=== PATIENT | female | born 1970 | race Caucasian/White ===

== ENCOUNTER 2016-04-25 01:06 | Emergency (ER) | payer OTHER, MEDICAID ==
--- NOTE | 2016-04-25 01:53 | ERNOTE ---
Headache ER HPI - General Presenting Symptoms: headache Time Seen by Provider: 04/25/16 01:51 Source: patient Exam Limitations: no limitations - Immun/Allergies/Home Medications Immunizations: IMMUNIZATION HX Immunizations Up to Date Yes History of Influenza Vaccine No Hx Pneumococcal Vaccination No Allergies/Adverse Reactions: Allergies No Known Allergies Allergy (Verified 02/05/16 15:13) Home Medications: HOME MEDICATIONS Lisinopril [Zestril] 20 mg PO DAILY 12/23/12 [Last Taken Unknown] Omeprazole [Prilosec Generic] 20 mg PO DAILY 12/23/12 [Last Taken Unknown] Glimepiride [Amaryl] 4 mg PO DAILY 09/27/15 [Last Taken Unknown] ALPRAZolam [Xanax] 0.25 mg PO TID PRN 11/11/15 [Last Taken Unknown] Topiramate [Topamax] 25 mg PO BID 11/11/15 [Last Taken Unknown] Diclofenac Sodium [Voltaren] 75 mg PO BID 04/25/16 [Last Taken Unknown] Morphine Sulfate [Ms Contin] 30 mg PO 04/25/16 [Last Taken Unknown] Oxycodone HCl/Acetaminophen [Oxycodone-Acetaminophen 5-325] 1 each PO QID PRN [Last Taken Unknown] - Pain Pain Score: 7 - History of Present Illness Narrative: pt has had a headache for several days. she is having a hard time sleeping due to anxiety and restlessness over an upcoming hip surgery. She does have xanax PRN and she tried this but it did not help her sleep. Activity at onset: other Timing of Headache: cannot pinpoint onset Quality: Present: pressure Severity Maximum: Present: moderate Severity-Currently: Present: moderate Headache frequency: Present: occasional headaches, other - frontal this time not like her "migraines" Review of Systems - Review of Systems Constitutional: Present: See HPI. Absent: fever, chills EYE: Present: no symptoms reported ENT: Present: See HPI Respiratory: Present: no symptoms reported Cardiology: Present: no symptoms reported Gastrointestinal/Abdominal: Present: no symptoms reported Genitourinary: Present: no symptoms reported Musculoskeletal: Present: joint pain - left hip Skin: Present: no symptoms reported Neurological: Present: no symptoms reported Endocrine: Present: no symptoms reported Hematologic/Lymphatic: Present: no symptoms reported Psych: Present: no symptoms reported - Patient's Past Medical History Patient History - Medical: Diabetes Type 2, Migraines, Obesity Patient History - Cardiac/Respiratory: No pertinent hx Patient History - Cancer: No Hx of Cancer Patient History - Surgical Procedures: Other Patient History - Other: None LMP (Calendar): 09/05/15 - Social History Living Situations: alone Abuse History: No History of abuse Psych History: Hx of Anxiety Smoking Status: Never smoker Alcohol Use: rarely Drug Use: none - Immunizations Immunizations Up to Date: Yes Hx Pneumococcal Vaccination: No History of Influenza Vaccine: No Physical Exam - Physical Exam General Appearance: Present: wd/wn, alert, no apparent distress Eye Exam: Normal inspection: bilateral, PERRL: bilateral, EOMI: bilateral Ears, Nose, Throat: Present: nasal congestion Neck: Present: normal inspection, nontender Respiratory: Present: no respiratory distress, normal breath sounds Cardiovascular/Chest: Present: regular rate, rhythm, no murmur, normal peripheral pulses Back Exam: Present: normal inspection, normal range of motion, no vertebral tenderness Extremity Exam: Present: normal inspection, no edema Neurological Exam: Present: alert, oriented, normal mood/affect, no motor/ sensory deficits Skin Exam: Present: normal color, warm/dry ED Progress - Vital Signs Vital Signs: Vital Signs 04/25/16 01:20 Temperature 36.6 C Pulse Rate 85 Respiratory 16 Rate Blood Pressure 183/99 O2 Sat by Pulse 100 Oximetry - Progress/Reassessment Chief Complaint: Headache Departure Clinical Impression: Headache Qualifiers: Headache type: tension-type Headache chronicity pattern: acute headache Intractability: not intractable Qualified Code(s): G44.209 - Tension-type headache, unspecified, not intractable Insomnia Qualifiers: Insomnia type: paradoxical Qualified Code(s): 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 if you are not ready to sleep within an hour or an hour and a half you may take another one. Discuss with your pain management or your regular doctor continued treatment for your insomnia. Referrals: [Primary Care Provider] -
[2016-04-25] MEDS ORDERED: hydrOXYzine PAMOATE 25 MG CAPSULE PO ONE (02:09)
[2016-04-25] MEDS ORDERED: KETOROLAC TROMETHAMINE 60 MG/2 ML VIAL IM ONE ×2 (02:09→02:19)
[2016-04-25] MEDS ORDERED: hydrOXYzine PAMOATE 25 MG CAPSULE ONE (02:19)
--- OUTSIDE RECORDS SUMMARY | 2016-04-25 02:26 | XMS REPORT | Continuity of Care Document ---
:1970 Author Organization [facility] ([facility]) Address [address] [place] [address] Phone [phone] Care Team Providers Name Role Phone Francesco Ocampo Primary Care Provider [phone] Source Comments This disclosure is being made pursuant to the Care Everywhere program, applicable federal and state laws, and may not contain all informaitonavailable regarding this patient.[facility] ([facility]) Active Allergies and Adverse Reactions Allergen Noted Date Severity Reactions Comments Sumatriptan Upper Airway Edema,Angioedema Current Medications Prescription Sig. Disp. Refills Start Date End Date Status promethazine 25 mg Take 1 Tab by mouth 20 Tab 0 06/19/2011 Active tablet every 6 hours as needed. Indications: Nausea and migraine lisinopril 10 mg Take 1 Tab by mouth 30 Tab 5 11/21/2011 Active tablet daily. Indications: HYPERTENSION Omeprazole 20 mg Take 1 Tab by mouth 30 Tab 11 01/25/2012 Active TbEC daily. Indications: GASTROESOPHAGEAL REFLUX topiramate 25 mg Take 25 mg by mouth 2 01/25/2012 Active tablet times daily. Indications: MIGRAINE PREVENTION meloxicam (MOBIC) Take 1 Tab by mouth 60 Tab 1 05/08/2012 Active 15 mg tablet daily. Indications: ankle pain albuterol 90 Use 2 Puffs by 1 Inhaler 6 05/08/2012 Active mcg/Actuation inhalation every 6 inhaler hours as needed. Indications: BRONCHOSPASM PREVENTION rizatriptan 10 mg Take 1 tab at onset, 9 Tab 4 05/22/2012 Active tablet then 1 tab every 2 hours as needed. Max 3 tabs (30mg)/day Indications: MIGRAINE Active Problems Problem Noted Date OA (osteoarthritis) of knee 05/08/2012 Overview: bilat grade 3 S/P excision of acoustic neuroma 05/08/2012 Overview: In 2005. 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 Prediabetes 05/08/2012 Low back pain 01/25/2012 GERD (gastroesophageal reflux disease) 11/21/2011 RAD (reactive airway disease) 11/21/2011 Health education/counseling 11/21/2011 Morbid obesity 02/11/2009 Essential hypertension, benign 11/12/2008 Migraine 11/12/2008 Left hip pain 11/12/2008 Resolved Problems Problem Noted Date Resolved Date DM type 2 (diabetes mellitus, type 2) 05/08/2012 05/08/2012 Left ankle sprain 05/18/2011 05/08/2012 Other physical therapy 05/18/2011 05/08/2012 Type II or unspecified type diabetes mellitus without 11/12/2008 05/08/2012 mention of complication, uncontrolled Lt knee pain 11/12/2008 05/08/2012 Social History Tobacco Use Types Packs/Day Years Used Date Never Smoker Smokeless Tobacco: Never Used Tobacco Cessation:Counseling Given: Yes Comments: Alcohol Use Drinks/Week oz/Week Comments Yes rarely Last Filed Vital Signs Vital Sign Reading Time Taken Blood Pressure 130/98 05/22/2012 3:37 PM CDT Pulse 88 05/22/2012 3:37 PM CDT Temperature 37.7 C (99.9 F) 05/08/2012 11:43 AM CDT Respiratory Rate 18 12/05/2011 10:58 AM CDT Height 1.626 m (5' 4") 05/22/2012 3:37 PM CDT Weight 133.4 kg (294 lb 1.5 oz) 05/22/2012 3:37 PM CDT Body Mass Index 50.46 05/22/2012 3:37 PM CDT Oxygen Saturation 99% 12/05/2011 10:58 AM CDT Plan of Care Patient Goal Type Goal Diet Decrease soda or juice intake Reduce fast food intake Increase water intake Weight Weight below 91 kg (200 lb) Health Maintenance Due Date Last Done Comments Hepatitis B Vaccine (1 of 3 - 1970 Primary Series) MMR Vaccine 1988 Pneumococcal Vaccine (1 of 1989 - PPSV23) Cervical Cancer Screening 2000 Mammogram 2010 DIABETIC: Hemoglobin A1C 05/20/2012 11/21/2011, 11/21/2011, 11/12/2008 DIABETIC: Cholesterol 11/20/2012 11/21/2011, 11/21/2011, 11/12/2008 Diabetic: Hdl 11/20/2012 11/21/2011, 11/21/2011, 11/12/2008 Diabetic: Ldl 11/20/2012 11/21/2011, 11/21/2011, 11/12/2008 DIABETIC: Microalbumin 11/20/2012 11/21/2011, 11/21/2011, 11/12/2008 DIABETIC: Triglycerides 11/20/2012 11/21/2011, 11/21/2011, 11/12/2008 DIABETIC: Foot Exam 01/24/2013 01/25/2012, 01/25/2012, 01/25/2012 DIABETIC: Retinal Eye Exam 03/01/2013 03/01/2012, 03/01/2012 Influenza Vaccine: Seasonal 09/27/2015 (#1) Td Vaccine 11/20/2021 11/21/2011 (Declined), 01/12/2009 Tdap Vaccine Addressed 11/21/2011 Overridden with the (Declined) intention of not completing the topic Results from Last 3 Months Not on file
--- OUTSIDE RECORDS SUMMARY | 2016-04-25 02:26 | XMS REPORT | Summary of Care ---
:1970 Author Organization [facility] Address [address] [place] [address] Care Team Providers Name Role Phone RameshrachellePancho Chopra Primary Care Physician Encounter Date(s): 03/30/16 - 03/30/16 [facility] Jenelle Rai, [address] [place], [place] [address] Discharge Disposition: 01 Discharged to Home or Self Care Attending Physician: Terry Greenfield MD Referring Physician: Unknown Physician Vital Signs No data available for this section Problem List Condition Effective Dates Status Health Status Informant Diabetes mellitus type 2(Confirmed) Active Hypertension(Confirmed) Active Thyroid disease(Confirmed) Active Allergies, Adverse Reactions, Alerts No Known Medication Allergies Medications FLUoxetine 20 mg, Oral, Daily, 0 Refill(s), Start Date: 01/31/16 14:16:00 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 Start Date: 01/31/16 Status: Orderedglimepiride 4 mg oral tablet 1 tab(s), Oral, Daily, 0 Refill(s), Start Date: 04/29/15 9:47:00 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 Start Date: 04/29/15 Status: Orderedlisinopril 20 mg, Oral, Daily, 0 Refill(s), Start Date: 04/29/15 9:47:00 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 Start Date: 04/29/15 Status: OrderedMedrol Dosepak 4 mg oral tablet 1 packet(s), Oral, Per Package Label, as directed on package labeling, # 21 tab( s), 0 Refill(s), Start Date: 02/07/16 8:41:00 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, Pharmacy: [facility] [address] [facility] Special Instructions: as directed on package labeling Start Date: 02/07/16 Stop Date: 02/13/16 Status: Orderedmeloxicam 15 mg, Oral, Daily, 0 Refill(s), Start Date: 04/29/15 9:46:00 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 Start Date: 04/29/15 Status: OrderedNorco 5 mg-325 mg oral tablet 1 tab(s), Oral, q6hr interval, PRN for pain, 0 Refill(s), Start Date: 01/31/16 14:12:00 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 Start Date: 01/31/16 Status: Orderedomeprazole-sodium bicarbonate Oral, Daily, 0 Refill(s), Start Date: 04/29/15 9:48:00 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 Start Date: 04/29/15 Stop Date: 01/31/16 Status: DiscontinuedPercocet 5/325 tab(s), Oral, q6hr interval, 0 Refill(s), Start Date: 09/30/15 14:30:00 CDT Start Date: 09/30/15 Stop Date: 01/31/16 Status: Discontinuedtopiramate 25 mg oral tablet 1 tab(s), Oral, BID, 0 Refill(s), Start Date: 04/29/15 9:48:00 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 Start Date: 04/29/15 Stop Date: 01/31/16 Status: Discontinuedtopiramate 50 mg oral tablet 1 tab(s), Oral, BID, 0 Refill(s), Start Date: 01/31/16 14:12:00 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 Start Date: 01/31/16 Status: OrderedtraMADol 50 mg oral tablet 1 tab(s), Oral, TID, PRN as needed for pain, # 90 tab(s), 0 Refill(s), Start Date: 11/19/15 12:10:00 CDT, other reason (Rx) Start Date: 11/19/15 Stop Date: 02/07/16 Status: Discontinued Results No data available for this section Immunizations No data available for this section Procedures Procedure Date Related Diagnosis Body Site MRI with anesthesia1 2015 Acoustic neuroma2 2005 1MRI of [id number] side Social History No data available for this section Assessment and Plan No data available for this section
--- OUTSIDE RECORDS SUMMARY | 2016-04-25 02:27 | XMS REPORT | Summary of Care ---
:1970 Author Organization [facility] Address [address] [place] [address] Care Team Providers Name Role Phone RameshrachellePancho Chopra Primary Care Physician Encounter Date(s): 03/13/16 - 03/13/16 [facility] Jenelle Rai, [address] [place], [place] [address] Discharge Disposition: 01 Discharged to Home or Self Care Attending Physician: Terry Greenfield MD Vital Signs No data available for this section Problem List Condition Effective Dates Status Health Status Informant Diabetes mellitus type 2(Confirmed) Active Hypertension(Confirmed) Active Thyroid disease(Confirmed) Active Allergies, Adverse Reactions, Alerts No Known Medication Allergies Medications FLUoxetine 20 mg, Oral, Daily, 0 Refill(s), Start Date: 01/31/16 14:16:00 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 Start Date: 01/31/16 Status: Orderedglimepiride 4 mg oral tablet 1 tab(s), Oral, Daily, 0 Refill(s), Start Date: 04/29/15 9:47:00 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 Start Date: 04/29/15 Status: Orderedlisinopril 20 mg, Oral, Daily, 0 Refill(s), Start Date: 04/29/15 9:47:00 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 Start Date: 04/29/15 Status: OrderedMedrol Dosepak 4 mg oral tablet 1 packet(s), Oral, Per Package Label, as directed on package labeling, # 21 tab( s), 0 Refill(s), Start Date: 02/07/16 8:41:00 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, Pharmacy: [facility] Start Date: 02/07/16 Stop Date: 02/13/16 Status: Orderedmeloxicam 15 mg, Oral, Daily, 0 Refill(s), Start Date: 04/29/15 9:46:00 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 Start Date: 04/29/15 Status: OrderedNorco 5 mg-325 mg oral tablet 1 tab(s), Oral, q6hr interval, PRN for pain, 0 Refill(s), Start Date: 01/31/16 14:12:00 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 Start Date: 01/31/16 Status: Orderedomeprazole-sodium bicarbonate Oral, Daily, 0 Refill(s), Start Date: 04/29/15 9:48:00 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 Start Date: 04/29/15 Stop Date: 01/31/16 Status: DiscontinuedPercocet 5/325 tab(s), Oral, q6hr interval, 0 Refill(s), Start Date: 09/30/15 14:30:00 CDT Start Date: 09/30/15 Stop Date: 01/31/16 Status: Discontinuedtopiramate 25 mg oral tablet 1 tab(s), Oral, BID, 0 Refill(s), Start Date: 04/29/15 9:48:00 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 Start Date: 04/29/15 Stop Date: 01/31/16 Status: Discontinuedtopiramate 50 mg oral tablet 1 tab(s), Oral, BID, 0 Refill(s), Start Date: 01/31/16 14:12:00 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 Start Date: 01/31/16 Status: OrderedtraMADol 50 mg [...] anesthesia1 2015 Acoustic neuroma2 2005 1MRI of [id number] side Social History No data available for this section Assessment and Plan No data available for this section
[2016-04-25 02:52] VITALS: BP 145/89
== END 2016-04-25 02:30 | disposition home or self-care (01) ==
LOC: ER 01:06
DX: G44.209 Tension-type headache, unspecified, not intractable (principal); F51.03 Paradoxical insomnia; E11.9 Type 2 diabetes mellitus without complications

== ENCOUNTER 2016-12-25 16:08 | Emergency (ER) | payer OTHER ==
[2016-12-25 18:04] VITALS: BP 153/92
--- NOTE | 2016-12-25 18:21 | ERNOTE ---
Lower Extremity HPI - Narrative Date of Service: 12/25/16 - General Lower Extremities Pain: hip: left, knee: left Time Seen by Provider: 12/25/16 17:55 Source: patient Exam Limitations: no limitations - Immun/Allergies/Home Medications Immunizations: IMMUNIZATION HX Immunizations Up to Date Yes History of Influenza Vaccine No Hx Pneumococcal Vaccination No Allergies/Adverse Reactions: Allergies Allergy/AdvReac Type Severity Reaction Status Date / Time No Known Allergies Allergy Verified 12/25/16 16:16 Home Medications: HOME MEDICATIONS Lisinopril [Zestril] 20 mg PO DAILY 12/23/12 [Last Taken Unknown] Omeprazole [Prilosec Generic] 20 mg PO DAILY 12/23/12 [Last Taken Unknown] Glimepiride [Amaryl] 4 mg PO DAILY 09/27/15 [Last Taken Unknown] Topiramate [Topamax] 25 mg PO BID 11/11/15 [Last Taken Unknown] Diclofenac Sodium [Voltaren] 75 mg PO BID 04/25/16 [Last Taken Unknown] Cyclobenzaprine HCl [Flexeril] 10 mg PO TID PRN #30 tab 12/25/16 [Last Taken Unknown] - Pain Score Pain Score #1 Pain Score: 6 - L. knee Pain Score #2 Pain Score: 6 - L. posterior leg radiating up to L. hip - History of Present Illness Narrative: 46yo, reports pain to L. hip and L. knee since 12/23. She stepped down the stairs slipped and landed on her RLE, but that caused her L. hip and L. knee to turn inward. She has been having pain to L. knee and pain to L. posterior thigh shooting up her L. hip and into her lower back. She notes most of the pain is in her L. knee, but did have a L. hip replacement on 05/19/[address] Villalta in [place] at the [facility]. Date (Duration): 12/23/16 Location of Incident: other - friend house Method of Injury: Reports: fell, twisted Reason for Fall: Reports: slipped Loss of Consciousness: Reports: no loss of consciousness Modifying Factors - (Improves): Reports: rest Modifying Factors - (Worsens): Reports: movement Review of Systems - Review of Systems Constitutional: Present: no symptoms reported Musculoskeletal: Present: joint pain - L. hip, L. knee, joint swelling - mild L. knee Neurological: Absent: numbness, tingling - Patient's Past Medical History Patient History - Medical: Diabetes Type 2, Migraines, Obesity Patient History - Cardiac/Respiratory: No pertinent hx Patient History - Cancer: No Hx of Cancer Patient History - Surgical Procedures: Other Patient History - Other: None - Social History Living Situations: home Abuse History: No History of abuse Psych History: Hx of Anxiety Alcohol Use: none Drug Use: none - Immunizations Immunizations Up to Date: Yes Hx Pneumococcal Vaccination: No History of Influenza Vaccine: No Physical Exam - Physical Exam General Appearance: Present: wd/wn, alert, no apparent distress Respiratory: Present: normal breath sounds, chest nontender, lungs clear. Absent: crackles, rhonchi, wheezing Cardiovascular/Chest: Present: regular rate, rhythm, no murmur Extremity Exam: Present: normal inspection, normal range of motion - L. hip and L. knee, pain reported to L. knee with flexion and extension against resistance , no edema, bony tenderness - medial jointline tenderness to L. knee, other - tenderness along L. buttock and L. posterior thigh Neurological Exam: Present: alert, oriented Skin Exam: Present: normal color, warm/dry ED Progress - Date and Time Seen: Date and Time: 12/25/16 18:30 Reviewed xray results with pt. She feels her symptoms are more to her L. knee than hip. She does v/u to f/u with the orthopedic who performed her hip replacement. Although, she is wanting to establish with Dr. Lizarraga for f/u on her knee if needed. Advised to call office if symptoms do not improve with conservative measures. - Vital Signs Patient's Vital Signs:: I have reviewed the patient's vital signs. Vital Signs: Vital Signs 12/25/16 12/25/16 16:10 18:02 Temperature 36.9 C Pulse Rate 90 83 Respiratory 12 15 Rate Blood Pressure 148/95 153/92 O2 Sat by Pulse 98 98 Oximetry - X-Ray X-Ray #1 X-Ray: knee Interpretation: Reviewed by me X-ray Comments: [facility] PATIENT RADIOLOGY STUDY REPORT Patient Patient Name:RENETTA JOSHI Date: 1970 Sex: F Order Number: [id number] Unique Exam ID: [id number] Exam Requested: [id number] - Knee 3 Views LT * Date Scheduled: 12-25-2016 05:25 PM Study Priority: Requesting Service: Requesting Physician: Nadia Somers Reason for Exam: fell on stairs Radiological Report : [place] [address] NAME: RENETTA JOSHI : 1970 MR #: [id number] CC: Shea Hernandez DO LOC: ADM DATE: X-RAY REPORT [id number] RAD/Knee 3 Views LT * Exam Date: 12/25/2016 17:25 Ordering Physician: Nadia Somers History: fell on stairs Additional history provided by the technologist: Fell Sunday night. Twisted left hip/leg left knee. History of left hip replacement April 2016. Technique: Left knee series (3 views) Comparison:None. Findings: No evidence of acute fracture. Only visualized on the frontal and oblique projections is a irregular small 7 mm density superimposed over the lateral tibial plateau at the level of the proximal tibiofibular joint, that may represent artifact related to summation shadows versus loose body within the popliteal bursa. No dislocation. Alignment is anatomic. Mineralization is normal. There are moderate tricompartmental degenerative changes. No destructive osseous lesions. There is a small suprapatellar joint effusion. Soft tissues are unremarkable. Impression: No acute osseous findings. Additional findings and comments are as above. Electronically signed by Jeffrey Johnston D.O.. Jeffrey Johnston DO Dict: 12/25/[id number] Typed: 12/25/161848/ 12/25/16185412/25/161858 , Approved by: Jeffrey Johnston Approval Date: 12-25-2016 Approval Time: 06:49 PM THIS REPORT WAS RECEIVED FROM THE [facility] X-Ray #2 X-Ray: hip Interpretation: Reviewed by me X-ray Comments: [facility] PATIENT RADIOLOGY STUDY REPORT Patient Patient Name:RENETTA JOSHI Date: 1970 Sex: F Order Number: [id number] Unique Exam ID: [id number] Exam Requested: [id number] - Hip Pelvis 2-3 views LT * Date Scheduled: 12-25-2016 05:25 PM Study Priority: Requesting Service: Requesting Physician: Nadia Somers Reason for Exam: fell on stairs Radiological Report : [facility] [address] [place] [address] NAME: JESUS JOSHIID : 1970 MR #: [id number] CC: Shea Hernandez DO LOC: ER ADM DATE: X-RAY REPORT [id number] RAD/Hip Pelvis 2-3 views LT * Exam Date: 12/25/2016 17:25 Ordering Physician: Nadia Somers History: fell on stairs. Additional history provided by the technologist: Fell Sunday night. Twisted left hip/leg/knee. History of left hip replacement April 2016. Technique: AP radiograph of the pelvis and 2 views of the left hip (3 views) Comparison:None. Findings: There are changes from left total hip arthroplasty. The arthroplasty device is intact without surrounding lucency to suggest loosening or complication. No acute fracture. No dislocation. Alignment is anatomic. Mineralization is normal. There is bilateral sacroiliac joint arthrosis. Pubic symphysis and right hip degenerative changes noted. No destructive osseous lesions. Joint spaces are maintained. A IUD is superimposed over the pelvis. Impression: No acute fracture. Changes from left total hip arthroplasty without evidence of arthroplasty device complication. Electronically signed by Jeffrey Johnston D.O.. Jeffrey Johnston DO Dict: 12/25/[id number] Typed: 12/25/161854/ 12/25/16185512/25/161858 , Approved by: Jeffrey Johnston Approval Date: 12-25-2016 Approval Time: 06:55 PM THIS REPORT WAS RECEIVED FROM THE [facility] - Progress/Reassessment Chief Complaint: Lower Extremity Pain/ Injury Departure Clinical Impression: Muscle strain, Hip pain, left Sprain of knee Qualifiers: Encounter type: initial encounter Involved ligament of knee: unspecified ligament Laterality: left Qualified Code(s): S83.92XA - Sprain of unspecified site of left knee, initial encounter - Departure Disposition: Home self-care Condition: Good Instructions: Knee Sprain, [id number], Low Back Strain With Rehab-Sports[facility] Additional Instructions: May use heat to back as needed for pain Rest, ice, elevate, matthew wrap to knee May use crutches for the next 3 days until able to bear weight without pain Contact your orthopedic at [facility] for recheck on left hip If your knee pain does not improve with conservative treatments, then you may follow up with [facility] or with [facility] orthopedics, as additional testing may be needed Referrals: Shea Hernandez DO [Primary Care Provider] - Prescriptions: Cyclobenzaprine HCl [Flexeril] 10 mg PO TID PRN #30 tab PRN Reason: Pain
== END 2016-12-25 18:43 | disposition home or self-care (01) ==
LOC: ER 16:08
DX: S83.92XA Sprain of unspecified site of left knee, initial encounter (principal); M25.552 Pain in left hip; T14.8XXA Other injury of unspecified body region, initial encounter; W19.XXXA Unspecified fall, initial encounter; Y93.9 Activity, unspecified; Y92.9 Unspecified place or not applicable; Y99.9 Unspecified external cause status